=== PATIENT | male | born 1940 | race Caucasian/White ===

== ENCOUNTER → 2016-10-12 | Outpatient (CLI) | payer MEDICARE, BC ==
[~2016-10-12] MED LIST: IOHEXOL 300 MG/ML 100ML VIAL. IV ONE
--- NOTE | 2016-10-12 09:29 | KCIC ---
PROCEDURE Neck CT with without contrast. HISTORY Difficulty swallowing. TECHNIQUE Computed tomographic images of the neck were obtained prior to and following the administration of 80 cc Omnipaque 300 intravenous contrast. One or more of the following individualized dose reduction techniques were utilized for this examination: 1. Automated exposure control; 2. Adjustment of the mA and/or kV according to patient size; 3. Use of iterative reconstruction technique. COMPARISON None. FINDINGS The airway is widely patent. No suspicious mass or abnormal enhancement is seen. The parotid, submandibular and thyroid glands are unremarkable. No pathologically enlarged lymph node is seen. The visualized portions of the brain are unremarkable. There is a small right maxillary sinus mucous retention cyst. There is mild ethmoid and maxillary sinus mucosal thickening. There is obstruction of the ostiomeatal units. There is mild nasal septal deviation. There are multiple missing teeth and dental restorations. The mastoid air cells are clear. The temporomandibular joints are intact. There is mild atherosclerotic plaque within the carotid bifurcations, without hemodynamically significant stenosis. There is a dominant left vertebral artery. The lung apices are unremarkable. There are degenerative changes throughout the cervical spine. This includes disc bulges with endplate osteophytosis, uncovertebral and facet arthropathy at C3 through C7. The combination of these degenerative changes and slight retrolisthesis at these levels results in moderate to severe right and moderate left foraminal stenosis at C3-C4, severe right and moderate left foraminal and mild central canal stenosis at C4-C5, moderate right and severe left foraminal and mild central canal stenosis C5-C6, and moderate bilateral foraminal stenosis at C6-C7. There is a bone island within C3. No suspicious osseous lesion is seen. There is ossification along the ligamentum flavum at T4-T5, without significant stenosis. IMPRESSION 1. No acute finding or finding to correlate with the reported history of dysphagia. 2. Multilevel degenerative change within the cervical spine, described above. 3. Ethmoid and maxillary sinus disease, described above. Electronically signed by: Sue Bentley (Oct 12, 2016 09:27:43)
== END | disposition home or self-care (01) ==
LOC: KCIC CT 08:28
PROVIDERS: ATTEND Family Medicine
DX: J32.0 Chronic maxillary sinusitis (principal); J32.2 Chronic ethmoidal sinusitis; M47.892 Other spondylosis, cervical region
CPT/HCPCS: 70492; 82565; Q9967

== ENCOUNTER 2021-10-25 18:34 | Emergency (ER) | payer MEDICARE, BC ==
[~2021-10-25] VITALS: Ht 177.8 cm; Wt 75.0 kg
[2021-10-25] MEDS ORDERED: ONDANSETRON PF 4 MG/2 ML VIAL. IVP ONE (19:00)
[2021-10-25] MEDS ORDERED: fentaNYL PF VIAL 100 MCG/2 ML VIAL IV PRN (19:00)
[2021-10-25] MEDS ORDERED: FAMOTIDINE 20 MG/2 ML VIAL IVP ONE (19:00)
[2021-10-25] MEDS ORDERED: LIDO:MAALOX 1:1 20 ML SINGLE DOSE. SWSW ONE (19:00)
[2021-10-25] MEDS ORDERED: IV NORMAL SALINE 1000ML BAG 1,000 ML IV ONE (19:00)
--- NOTE | 2021-10-25 19:05 | PHYS DOC ---
General Adult EDM: Chief Complaint: NAUSEA/VOMITING/DIARRHEA HPI: HPI: Patient is a 81 year old male with history of acid reflux, esophageal dilatation several times, chronic nausea and vomiting for 8 years who presents to the ED today complaining of nausea and vomiting this evening as well as mild intermittent epigastric pain, symptoms began this evening. Patient states this epigastric pain is different from his normal pain. Denies any hematemesis or melena. Denies any diarrhea. He states he follows up with a GI doctor. Review of Systems: Review of Systems: Constitutional: Denies fever or chills. [] Eyes: Denies change in visual acuity. [] HENT: Denies nasal congestion or sore throat. [] Respiratory: Denies cough or shortness of breath. [] Cardiovascular: Denies chest pain or edema. [] GI: Reports epigastric abdominal pain with nausea and vomiting, denies bloody stools or diarrhea. [] : Denies dysuria. [] Musculoskeletal: Denies back pain or joint pain. [] Integument: Denies rash. [] Neurologic: Denies headache, focal weakness or sensory changes. [] Psychiatric: Denies depression or anxiety. [] Heart Score: C/O Chest Pain: N/A Risk Factors: Risk Factors: DM, Current or recent (<one month) smoker, HTN, HLP, family history of CAD, obesity. Risk Scores: Score 0 - 3: 2.5% MACE over next 6 weeks - Discharge Home Score 4 - 6: 20.3% MACE over next 6 weeks - Admit for Clinical Observation Score 7 - 10: 72.7% MACE over next 6 weeks - Early Invasive Strategies Allergies: Allergies: Allergies Coded Allergies Type Severity Reaction Last Updated Verified No Known Drug Allergies 10/12/16 No Physical Exam: PE: Constitutional: Well developed, well nourished, no acute distress, non-toxic appearance. [] HENT: Normocephalic, atraumatic, bilateral external ears normal, oropharynx moist, no oral exudates, nose normal. [] Eyes: PERRLA, EOMI, conjunctiva normal, no discharge. [] Neck: Normal range of motion, no tenderness, supple, no stridor. [] Cardiovascular:Heart rate regular rhythm, no murmur [] Lungs & Thorax: Bilateral breath sounds clear to auscultation [] Abdomen: Bowel sounds normal, soft, epigastric tenderness noted on exam, no right upper quadrant or right lower quadrant tenderness, no masses, no pulsatile masses. [] Skin: Acne lesions on the chest, warm, dry, no erythema, no rash. [] Back: No tenderness, no CVA tenderness. [] Extremities: No tenderness, no cyanosis, no clubbing, ROM intact, no edema. [] Neurologic: Alert and oriented X 3, normal motor function, normal sensory function, no focal deficits noted. [] Psychologic: Affect normal, judgement normal, mood normal. [] EKG: EK interpreted by Dr. Rosas sinus rhythm heart rate 85 no STEMI [] Radiology/Procedures: Radiology/Procedures: []PROCEDURE: CT CHEST ABD PELVIS W/CONTRAST Exam: CT of chest, abdomen and pelvis with contrast INDICATION: Dissection, chest, epigastric, abdominal pain TECHNIQUE: Sequential axial images through the chest, abdomen and pelvis obtained following the administration of 90 mL of Isovue-370 IV contrast. Sagittal and coronal reformatted images were reconstructed from the axial data and reviewed. Exposure: One or more of the following in the visualized dose reduction techniques were utilized for this examination: 1. Automated exposure control 2. Adjustment of the MA and/or KV according to patient size 3. Use of iterative of reconstructive technique Comparisons: None FINDINGS: Visualized portions of the thyroid are unremarkable. No enlarged mediastinal nodes are identified. Heart size is normal. No pericardial effusion. Thoracic aorta has normal course and caliber. Pulmonary artery is not enlarged. Airways are patent. Strandy opacities at dependent portion lungs likely representing atelectasis. No consolidation or pneumothorax. No pleural effusion or thickening. Liver, spleen, pancreas, gallbladder and adrenals are unremarkable. No perinephric inflammation or necrosis. No renal or ureteral calculi are ric ntified. Bladder is partially distended. Prostate is not enlarged. Diverticulosis noted at the sigmoid colon. Appendix is nonidentified. Small bowel is unremarkable. There is air noted adjacent to the gastroesophageal junction. No free intra-abdominal air or fluid. No obstruction. Abdominal aorta has normal course and caliber. Abdominal vasculature is patent. No enlarged intra-abdominal lymph nodes are identified. No suspicious osseous lesions or acute fractures. IMPRESSION: 1. Free air and pneumatosis at the gastroesophageal junction. Correlate for recent procedure. Recommend correlation with lactate levels for ischemia. Dif ficult to exclude perforation at this site, particularly in the setting of vomiting. 2. Normal appearance of the aorta without evidence for dissection or, aneurysm. Electronically signed by: Anselmo Angulo MD (10/25/2021 9:43 PM) [facility] DICTATED and SIGNED BY: ANSELMO ANGULO MD DATE: 10/25/212132 Course & Med Decision Making: Course & Med Decision Making Pertinent Labs and Imaging studies reviewed. (See chart for details) This is a 81-year-old male patient presenting to the ED today with complaints of epigastric abdominal pain, nausea and vomiting, symptoms began this evening though he reports history of chronic nausea and vomiting. Vitals on arrival to the ED temperature 97.9, heart rate 88, respiration 18, 202/101 which went down to 150/70, O2 sats 100% on room air CBC with a WBC of 16.0, lactic is normal, hemoglobin hematocrit are normal. CMP with glucose of 156, anion gap is normal, CO2 is normal. CT of the abdomen and pelvis was noted for Free air and pneumatosis at the gastroesophageal junction. Correlate for recent procedure. Recommend correlation with lactate levels for ischemia. Difficult to exclude perforation at this site, particularly in the setting of vomiting. Spoke with Dr. Wong who requested we transfer patient out to hospital with our cardiothoracic surgeon Patient daughter works at [employer] at [facility], she requested we transfer patient care. Spoke with Dr. Cherry who accepted patient, he requested we give patient Zosyn and Diflucan Patient was accepted at [facility] where they will do an esophagram Will be transported via EMS Dr. Rosas is aware Dragon Disclaimer: Leigh Disclaimer: This electronic medical record was generated, in whole or in part, using a voice recognition dictation system. Departure Departure Impression: Primary Impression: Pneumatosis intestinalis Additional Impressions: Nausea and vomiting Qualified Codes: R11.2 - Nausea with vomiting, unspecified Epigastric pain Disposition: 02 SHORT TERM HOSPITAL Condition: STABLE Referrals: MIGUELINA ADAMS MD (PCP) SHREYA ROJAS [employer] October 25, 2021 19:05
--- NOTE | 2021-10-25 20:03 | EKG ---
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
[2021-10-25 20:55] LABS: CALCIUM 8.6 mg/dL (8.5-10.1); CREATININE 0.9 mg/dL (0.7-1.3); POTASSIUM 3.6 mmol/L (3.5-5.1)
[2021-10-25 21:00] LABS: ALBUMIN 3.8 g/dL (3.4-5.0); ALBUMIN/GLOBULIN RATIO 1.2 (1.0-1.7); TOTAL BILIRUBIN 0.8 mg/dL (0.2-1.0)
[2021-10-25 21:12] LABS: BASO # 0.1 x10^3/uL (0.0-0.2); BASO % 0 % (0-3); EOS % 0 % (0-3); HEMATOCRIT 43.8 % (39.0-53.0); HEMOGLOBIN 14.5 g/dL (13.0-17.5); LYMPH # 0.5 x10^3/uL (1.0-4.8); LYMPH % 3 % (24-48); MEAN CORPUSCULAR HEMOGLOBIN 30 pg (25-35); MEAN CORPUSCULAR HGB CONC 33 g/dL (31-37); MEAN CORPUSCULAR VOLUME 91 fL (79-100); MONO # 0.5 x10^3/uL (0.0-1.1); MONO % 3 % (0-9); NEUT # 14.9 x10^3/uL (1.8-7.7); NEUT % 93 % (31-73); PLATELET COUNT 243 x10^3/uL (140-400); RED BLOOD COUNT 4.82 x10^6/uL (4.30-5.70); RED CELL DISTRIBUTION WIDTH 13.9 % (11.5-14.5)
[2021-10-25] MEDS ORDERED: CONTRAST GIVEN. MC PRN (21:15)
[2021-10-25] MEDS ORDERED: MORPHINE SULFATE 4 MG/ML INJ. IVP ONE (21:30)
[2021-10-25] MEDS ORDERED: IOHEXOL 350 MG/ML 100 ML VIAL. IV ONE (21:30)
--- NOTE | 2021-10-25 21:46 | RAD ---
Exam: CT of chest, abdomen and pelvis with contrast INDICATION: Dissection, chest, epigastric, abdominal pain TECHNIQUE: Sequential axial images through the chest, abdomen and pelvis obtained following the admin istration of 90 mL of Isovue-370 IV contrast. Sagittal and coronal reformatted images were reconstruc jane from the axial data and reviewed. Exposure: One or more of the following in the visualized dose reduction techniques were utilized for this examination: 1. Automated exposure control 2. Adjustment of the MA and/or KV according to patient size 3. Use of iterative of reconstructive technique Comparisons: None FINDINGS: Visualized portions of the thyroid are unremarkable. No enlarged mediastinal nodes are identified. Heart size is normal. No pericardial effusion. Thoracic aorta has normal course and caliber. Pulmonar y artery is not enlarged. Airways are patent. Strandy opacities at dependent portion lungs likely representing atelectasis. No consolidation or pneumothorax. No pleural effusion or thickening. Liver, spleen, pancreas, gallbladder and adrenals are unremarkable. No perinephric inflammation or necrosis. No renal or ureteral calculi are identified. Bladder is partially distended. Prostate is not enlarged. Diverticulosis noted at the sigmoid colon. Appendix is nonidentified. Small bowel is unremarkable. Th ere is air noted adjacent to the gastroesophageal junction. No free intra-abdominal air or fluid. No obstruction. Abdominal aorta has normal course and caliber. Abdominal vasculature is patent. No enlarged intra-abdominal lymph nodes are identified. No suspicious osseous lesions or acute fractures. IMPRESSION: 1. Free air and pneumatosis at the gastroesophageal junction. Correlate for recent procedure. Recomm end correlation with lactate levels for ischemia. Difficult to exclude perforation at this site, part icularly in the setting of vomiting. 2. Normal appearance of the aorta without evidence for dissection or, aneurysm. Electronically signed by: Anselmo Shah MD (10/25/2021 9:43 PM) [facility]
[2021-10-25 21:52] LABS: % BANDS 6 % (0-9); % EOS 1 % (0-5); % LYMPHS 2 % (24-48); % MONOS 1 % (0-10); % SEGS 90 % (35-66); PLT ESTIMATE ADEQUATE (ADEQUATE)
[2021-10-25 22:00] LABS: BACTERIA,URINE MOD /HPF (0-FEW); WBC,URINE 20-40 /HPF (0-4)
[2021-10-25] MEDS ORDERED: FLUCONAZOLE 200MG/100ML PREMIX 100 ML IV ONE (23:30)
[2021-10-25] MEDS ORDERED: PIPERACILLIN/TAZOBACTAM 3.375 GM in IV NORMAL SALINE 50ML 50 ML IV ONE (23:30)
[2021-10-26 00:15] VITALS: BP 154/72
== END 2021-10-26 00:39 | disposition short-term general hospital (02) ==
LOC: ER 18:34
DX: K63.89 Other specified diseases of intestine (principal); R11.2 Nausea with vomiting, unspecified; R10.13 Epigastric pain
CPT/HCPCS: 36415; 71260; 74177; 80053; 81001; 83605; 83690; 83735; 83880; 84484; 85007; 85025; 93005; 96361; 96365; 96368; 96375; 99285; J1450; J2270; J2405; J2543; J3010; J3490; J7030; Q9967